=== PATIENT | female | born 1985 | race American Indian/Alaskan Native ===

== ENCOUNTER 2016-12-22 05:34 | Inpatient (IN) | payer MEDICAID, OTHER, SELFPAY ==
[~2016-12-22] VITALS: Ht 170.2 cm; Wt 67.1 kg
[2016-12-22] MEDS ORDERED: LIDOCAINE 1%, 20ML ONE (06:26)
[2016-12-22] MEDS ORDERED: SODIUM CHLORIDE 0.9% 1,000ML IVBOLUS ONE (06:30)
[2016-12-22] MEDS ORDERED: VANCOMYCIN PER PHARMACY IV ONE (06:30)
[2016-12-22] MEDS ORDERED: SODIUM CHLORIDE FLUSH 10ML SYR IVF ONE (06:30)
[2016-12-22] MEDS ORDERED: LIDOCAINE 1%, 20ML SQ ONE (06:30)
[2016-12-22] MEDS ORDERED: VANCOMYCIN 1,300 MG in SODIUM CHLORIDE 0.9% 250 ML IV ONE (06:30)
[2016-12-22 06:42] LABS: HEMATOCRIT 34.6 % (34.6-47.8); HEMOGLOBIN 11.1 g/dL (11.7-16.4); WHITE BLOOD COUNT 5.4 x10^3/uL (3.4-10)
[2016-12-22 06:55] LABS: BLOOD UREA NITROGEN 8 mg/dL (7-18)
[2016-12-22] MEDS ORDERED: NS + 20MEQ KCL 1,000 ML IV SCH (11:09)
[2016-12-22] MEDS ORDERED: morphine SULFATE 10 MG/ML, 1ML IVPush PRN (11:30)
[2016-12-22] MEDS ORDERED: ONDANSETRON 2MG/ML, 2ML IVPush PRN ×2 (11:30→18:30)
[2016-12-22] MEDS ORDERED: VANCOMYCIN PER PHARMACY MC PRN (11:30)
[2016-12-22] MEDS ORDERED: DOCUSATE 100 MG CAPSULE PO PRN (11:30)
[2016-12-22] MEDS ORDERED: POLYETHYLENE GLYCOL 17 GM PACKET PO PRN (11:30)
[2016-12-22] MEDS ORDERED: PHARMACOKINETIC CONSULTATION MC ONE (12:30)
[2016-12-22] MEDS ORDERED: PHARMACOKINETIC MONITORING MC PRN (12:30)
[2016-12-22] MEDS: NICOTINE 7 MG/24 HR PATCH.TD24 TD SCH (13:51)
[2016-12-22 15:30] VITALS: BP 124/70
[2016-12-22] MEDS ORDERED: BACITRACIN 50,000 UNIT ONE (16:53)
[2016-12-22] MEDS ORDERED: FENTANYL PF 250 MCG/5ML ONE (17:21)
[2016-12-22] MEDS ORDERED: MIDAZOLAM 1 MG/ML, 2ML ONE ×2 (17:22→18:45)
[2016-12-22] MEDS ORDERED: DEXAMETHASONE 4 MG/ML, 1ML ONE (17:35)
[2016-12-22] MEDS ORDERED: PROPOFOL 10 MG/ML, 20ML ONE (17:35)
[2016-12-22] MEDS ORDERED: ONDANSETRON 2MG/ML, 2ML ONE (17:35)
[2016-12-22] MEDS ORDERED: SUCCINYLCHOLINE 20 MG/ML, 10ML ONE (17:35)
[2016-12-22] MEDS ORDERED: VANCOMYCIN 1,000 MG ONE (17:47)
[2016-12-22] MEDS ORDERED: FENTANYL PF 1000 MCG/20ML ONE (17:59)
[2016-12-22] MEDS ORDERED: LABETALOL 5MG/ML, 20ML IV PRN (18:30)
[2016-12-22] MEDS ORDERED: MEPERIDINE/PF 25MG/0.5ML IVPush PRN (18:30)
[2016-12-22] MEDS ORDERED: METOCLOPRAMIDE 5 MG/ML, 2ML IV PRN (18:30)
[2016-12-22] MEDS ORDERED: MIDAZOLAM 1 MG/ML, 2ML IV PRN (18:30)
[2016-12-22] MEDS ORDERED: PROMETHAZINE 25 MG/ML, 1ML IV PRN (18:30)
[2016-12-22] MEDS ORDERED: ALBUTEROL/IPRATROPIUM 2.5MG/0.5MG, 3 ML NPPB PRN (18:30)
[2016-12-22] MEDS ORDERED: FENTANYL PF 100 MCG/2ML IV PRN (18:30)
[2016-12-22] MEDS ORDERED: OXYcodone 5 MG/5 ML ORAL.SOL UDC PO PRN (18:30)
[2016-12-22] MEDS ORDERED: hydrALAzine 20 MG/ML, 1ML IV PRN (18:30)
[2016-12-22] MEDS: VANCOMYCIN 1,300 MG in SODIUM CHLORIDE 0.9% 250 ML IV SCH (18:30)
[2016-12-22] MEDS ORDERED: ACETAMINOPHEN 650 MG/20.3 ML UDC ONE (18:44)
[2016-12-22] MEDS ORDERED: MEPERIDINE/PF 25MG/0.5ML ONE (18:45)
[2016-12-22] MEDS ORDERED: HYDROmorphone 2 MG/ML, 1ML ONE (18:45)
[2016-12-22] MEDS ORDERED: FENTANYL PF 100 MCG/2ML ONE (18:46)
[2016-12-22] MEDS ORDERED: OXYcodone 5 MG/5 ML ORAL.SOL UDC ONE (18:46)
[2016-12-22] MEDS: ACETAMINOPHEN 325 MG TABLET PO PRN (18:59)
[2016-12-22] MEDS: HYDROmorphone 1 MG/ML, 1ML IV PRN ×2 (19:02→19:38)
[2016-12-22 20:54] VITALS: BP 108/68
[2016-12-23] MEDS: OXYcodone IR 5MG TABLET PO PRN ×4 (03:39→20:35)
[2016-12-23 04:04] VITALS: BP 111/60
[2016-12-23 05:10] LABS: HEMOGLOBIN 10.9 g/dL (11.7-16.4); WHITE BLOOD COUNT 5.8 x10^3/uL (3.4-10)
[2016-12-23 05:20] LABS: BLOOD UREA NITROGEN 7 mg/dL (7-18)
[2016-12-23] MEDS: VANCOMYCIN 1,300 MG in SODIUM CHLORIDE 0.9% 250 ML IV SCH ×2 (06:30→18:39)
[2016-12-23 06:45] VITALS: BP 132/80
[2016-12-23] MEDS: SODIUM CHLORIDE FLUSH 3ML SYRINGE IVF SCH ×2 (08:16→22:11)
[2016-12-23] MEDS: NICOTINE 7 MG/24 HR PATCH.TD24 TD SCH (11:30)
[2016-12-23 14:55] VITALS: BP 139/81
[2016-12-23 18:29] VITALS: BP 109/73
[2016-12-23] MEDS: ACETAMINOPHEN 325 MG TABLET PO PRN (22:11)
[2016-12-24 01:07] VITALS: BP 123/70
[2016-12-24] MEDS: VANCOMYCIN 1,300 MG in SODIUM CHLORIDE 0.9% 250 ML IV SCH (07:09)
[2016-12-24 08:00] VITALS: BP 136/95
[2016-12-24] MEDS: SODIUM CHLORIDE FLUSH 3ML SYRINGE IVF SCH ×2 (09:00→21:00)
[2016-12-24] MEDS: OXYcodone IR 5MG TABLET PO PRN ×2 (11:24→16:16)
[2016-12-24] MEDS: KETOROLAC 30 MG/1 ML IVPush SCH ×3 (11:24→23:12)
[2016-12-24] MEDS: NICOTINE 7 MG/24 HR PATCH.TD24 TD SCH (13:16)
[2016-12-24] MEDS: VANCOMYCIN 1,500 MG in SODIUM CHLORIDE 0.9% 250 ML IV SCH (14:34)
[2016-12-24 14:37] VITALS: BP 118/84
[2016-12-24] MEDS ORDERED: ONDANSETRON 2MG/ML, 2ML IVPush PRN (18:30)
[2016-12-24] MEDS ORDERED: DOCUSATE 100 MG CAPSULE PO PRN (18:30)
[2016-12-24] MEDS ORDERED: PHARMACOKINETIC MONITORING MC PRN (18:30)
[2016-12-24] MEDS ORDERED: POLYETHYLENE GLYCOL 17 GM PACKET PO PRN (18:30)
[2016-12-24] MEDS ORDERED: VANCOMYCIN PER PHARMACY MC PRN (18:30)
[2016-12-24 20:00] VITALS: BP 124/87
[2016-12-25] MEDS: VANCOMYCIN 1,500 MG in SODIUM CHLORIDE 0.9% 250 ML IV SCH ×2 (02:24→14:37)
[2016-12-25 02:33] VITALS: BP 110/78
[2016-12-25] MEDS: KETOROLAC 30 MG/1 ML IVPush SCH ×4 (04:39→22:35)
[2016-12-25] MEDS: SODIUM CHLORIDE FLUSH 3ML SYRINGE IVF SCH ×2 (09:00→21:00)
[2016-12-25] MEDS: NICOTINE 7 MG/24 HR PATCH.TD24 TD SCH (10:29)
[2016-12-25] MEDS: OXYcodone IR 5MG TABLET PO PRN ×2 (12:07→22:49)
[2016-12-25 12:08] VITALS: BP 129/93
[2016-12-25 14:00] VITALS: BP 128/90
[2016-12-25 19:31] VITALS: BP 118/81
[2016-12-26 00:53] VITALS: BP 119/75
[2016-12-26] MEDS: VANCOMYCIN 1,500 MG in SODIUM CHLORIDE 0.9% 250 ML IV SCH (02:35)
[2016-12-26] MEDS: OXYcodone IR 5MG TABLET PO PRN ×3 (04:52→21:01)
[2016-12-26] MEDS: KETOROLAC 30 MG/1 ML IVPush SCH ×4 (04:52→21:01)
[2016-12-26 08:20] VITALS: BP 129/81
[2016-12-26] MEDS: SODIUM CHLORIDE FLUSH 3ML SYRINGE IVF SCH ×2 (10:32→21:00)
[2016-12-26] MEDS: NICOTINE 7 MG/24 HR PATCH.TD24 TD SCH (11:08)
[2016-12-26 14:21] VITALS: BP 129/76
[2016-12-26 19:13] VITALS: BP 121/83
[2016-12-27 01:30] VITALS: BP 115/74
[2016-12-27] MEDS: KETOROLAC 30 MG/1 ML IVPush SCH (04:30)
[2016-12-27 07:30] VITALS: BP_SYST 123; BP_SYST 129; BP_DIAS 71; BP_DIAS 75
[2016-12-27] MEDS ORDERED: VANCOMYCIN 1,300 MG in SODIUM CHLORIDE 0.9% 250 ML IV SCH (08:00)
== END 2016-12-27 10:49 | disposition left against medical advice (07) | DRG 580 ==
LOC: ED 06:03 → EDIP 10:41 → SUATTDRO 11:09 → 3NE 11:53
PROVIDERS: ADMIT Family Medicine; ATTEND Family Medicine
PROC: 0JD90ZZ Extraction of Buttock Subcutaneous Tissue and Fascia, Open Approach (ICD-10-PCS; principal; 2016-12-22 17:30)
DX: L02.31 Cutaneous abscess of buttock (principal); E44.0 Moderate protein-calorie malnutrition; L02.511 Cutaneous abscess of right hand; F13.10 Sedative, hypnotic or anxiolytic abuse, uncomplicated; F11.10 Opioid abuse, uncomplicated; Z68.23 Body mass index [BMI] 23.0-23.9, adult; F17.200 Nicotine dependence, unspecified, uncomplicated; L03.011 Cellulitis of right finger; Z86.14 Personal history of Methicillin resistant Staphylococcus aureus infection; Z91.19 Patient's noncompliance with other medical treatment and regimen; Z53.21 Procedure and treatment not carried out due to patient leaving prior to being seen by health care provider
CPT/HCPCS: 26010; 36415; 80048; 80202; 82040; 82565; 85025; 87040; 93306; 96365; 96366; J1100; J1170; J1885; J2175; J2250; J2405; J2704; J3010; J3370; J3480; J0330; J7030; J7050